=== PATIENT | female | born 1930 | race Caucasian/White ===

== ENCOUNTER 2019-08-29 13:14 | Inpatient (IN) ==
[2019-08-30] MEDS ORDERED: MOM Conc 10 ML UD.LIQ PO PRN (18:29)
[2019-08-30] MEDS ORDERED: Fluticasone Propionate Nasal 50 MCG/SPRAY BOTTLE NS PRN (18:29)
[2019-08-30] MEDS ORDERED: Bisacodyl 10 MG RECTAL SUPPOSITORY RC PRN (18:29)
[2019-08-30] MEDS ORDERED: *HR* OxyCODONE Immed Rel 5 MG TABLET PO PRN (18:29)
[2019-08-30] MEDS ORDERED: Bumetanide 1 MG TABLET PO SCH (21:00)
[2019-08-30] MEDS: Ipratropium/Albuterol Neb 3 ML IH SCH (21:23)
[2019-08-30] MEDS: Levalbuterol Neb 0.63 MG/3 ML IH PRN (21:26)
[2019-08-30] MEDS: Budesonide/Formoterol 160/4.5 1 PUFF INH IH SCH (21:26)
[2019-08-30] MEDS: carvediloL 6.25 MG TABLET PO SCH (22:12)
[2019-08-30] MEDS: Sennosides 8.6 MG TABLET PO SCH (22:12)
[2019-08-30] MEDS: *HR* Warfarin 2.5 MG TABLET PO SCH (22:13)
[2019-08-30] MEDS: ZEAX PO SCH (22:13)
[2019-08-30] MEDS: COPPER PO SCH (22:13)
[2019-08-30] MEDS: LUTEIN PO SCH (22:13)
[2019-08-30] MEDS: VITC PO SCH (22:13)
[2019-08-30] MEDS: ZINC PO SCH (22:13)
[2019-08-30] MEDS: [UNRECOGNIZED DRUG - OTHER] PO SCH (22:13)
[2019-08-31] MEDS: Ipratropium/Albuterol Neb 3 ML IH SCH ×2 (05:14→11:16)
[2019-08-31 07:22] LABS: Hematocrit 27.1 % (35.3-44.9); Hemoglobin 8.4 g/dL (11.5-15.4); Mean Corpuscular Hemoglobin 33.3 pg (28.0-33.3); Mean Corpuscular Volume 107.5 fL (83.0-100.0); Platelet Count 205 K/mcL (140-400); Red Blood Count 2.52 M/mcL (3.82-4.97); White Blood Count 11.8 K/mcL (4.3-11.1)
[2019-08-31 07:28] LABS: INR 2.5; Prothrombin Time 28.3 Seconds (9.4-12.1)
[2019-08-31 07:40] LABS: BUN/Creatinine Ratio 28 (6-26); Blood Urea Nitrogen 27 mg/dL (8-23); Calcium 8.9 mg/dL (8.6-10.3); Carbon Dioxide 37 mEq/L (23-29); Chloride 92 mEq/L (98-107); Glucose 109 mg/dL (70-105); Osmolality,Calculated 282 (280-300); Potassium 4.1 mEq/L (3.5-5.1); Sodium 133 mEq/L (136-145); eGFR For African Americans > 60 (> 60); eGFR For Non-African Americans 55 (> 60)
[2019-08-31 07:50] LABS: Eosinophils # 0.5 K/mcL (0.0-0.6); Lymphocytes # 5.7 K/mcL (0.6-4.6); Neutrophils # 5.7 K/mcL (1.6-8.9)
[2019-08-31 07:52] LABS: Basophilic Stippling 1+ (Not Present); Platelet Estimate Normal (Normal); Smudge Cells Present (Not Present)
[2019-08-31] MEDS ORDERED: Bumetanide 1 MG/4 ML VIAL IVP SCH (09:00)
[2019-08-31] MEDS: Loratadine 10 MG TABLET PO SCH (09:29)
[2019-08-31] MEDS: Aspirin 81 MG TAB.CHEW PO SCH (09:29)
[2019-08-31] MEDS: Cyanocobalamin (B-12) 1,000 MCG TABLET PO SCH (09:30)
[2019-08-31] MEDS: Folic Acid 1 MG TABLET PO SCH (09:30)
[2019-08-31] MEDS: carvediloL 6.25 MG TABLET PO SCH ×2 (09:30→20:57)
[2019-08-31] MEDS: Sennosides 8.6 MG TABLET PO SCH ×2 (09:30→20:57)
[2019-08-31] MEDS: [UNRECOGNIZED DRUG - OTHER] PO SCH ×2 (09:31→20:57)
[2019-08-31] MEDS: ZEAX PO SCH ×2 (09:31→20:57)
[2019-08-31] MEDS: ZINC PO SCH ×2 (09:31→20:57)
[2019-08-31] MEDS: COPPER PO SCH ×2 (09:31→20:57)
[2019-08-31] MEDS: VITC PO SCH ×2 (09:31→20:57)
[2019-08-31] MEDS: LUTEIN PO SCH ×2 (09:31→20:57)
[2019-08-31] MEDS: Levalbuterol Neb 0.63 MG/3 ML IH PRN ×2 (10:41→16:10)
[2019-08-31] MEDS: Budesonide/Formoterol 160/4.5 1 PUFF INH IH SCH ×2 (10:42→21:11)
[2019-08-31] MEDS: Bumetanide 1 MG/4 ML VIAL IVP SCH (17:07)
[2019-08-31] MEDS: *HR* Warfarin 5 MG TABLET PO SCH (17:07)
[2019-08-31] MEDS ORDERED: Warfarin perPT PO PRN (18:00)
[2019-08-31 22:15] LABS: Adenovirus Not Detected (Not Detect); Bordetella Pertussis Not Detected (Not Detect); Chlamydophila pneumoniae Not Detected (Not Detect); Coronavirus 229E Not Detected (Not Detect); Coronavirus HKU1 Not Detected (Not Detect); Coronavirus NL63 Not Detected (Not Detect); Coronavirus OC43 Not Detected (Not Detect); Human Metapneumovirus DETECTED (Not Detect); Human Rhinovirus/Enterovirus Not Detected (Not Detect); Influenza A Subtype 2009 H1 Not Detected (Not Detect); Influenza B Not Detected (Not Detect); Mycoplasma pneumoniae Not Detected (Not Detect); Parainfluenza Virus 1 Not Detected (Not Detect); Parainfluenza Virus 2 Not Detected (Not Detect); Parainfluenza Virus 3 Not Detected (Not Detect); Parainfluenza Virus 4 Not Detected (Not Detect); Respiratory Syncytial Virus Not Detected (Not Detect)
[2019-09-01 05:06] LABS: INR 2.6; Prothrombin Time 29.2 Seconds (9.4-12.1)
[2019-09-01] MEDS: Folic Acid 1 MG TABLET PO SCH (08:30)
[2019-09-01] MEDS: Bumetanide 1 MG/4 ML VIAL IVP SCH (08:30)
[2019-09-01] MEDS: Loratadine 10 MG TABLET PO SCH (08:30)
[2019-09-01] MEDS: carvediloL 6.25 MG TABLET PO SCH ×2 (08:30→20:35)
[2019-09-01] MEDS: Cyanocobalamin (B-12) 1,000 MCG TABLET PO SCH (08:30)
[2019-09-01] MEDS: Sennosides 8.6 MG TABLET PO SCH ×2 (08:30→20:36)
[2019-09-01] MEDS: VITC PO SCH ×2 (08:31→20:35)
[2019-09-01] MEDS: Aspirin 81 MG TAB.CHEW PO SCH (08:31)
[2019-09-01] MEDS: COPPER PO SCH ×2 (08:31→20:35)
[2019-09-01] MEDS: [UNRECOGNIZED DRUG - OTHER] PO SCH ×2 (08:31→20:35)
[2019-09-01] MEDS: ZEAX PO SCH ×2 (08:31→20:35)
[2019-09-01] MEDS: LUTEIN PO SCH ×2 (08:31→20:35)
[2019-09-01] MEDS: ZINC PO SCH ×2 (08:31→20:35)
[2019-09-01] MEDS: Levalbuterol Neb 0.63 MG/3 ML IH PRN (09:27)
[2019-09-01] MEDS: Budesonide/Formoterol 160/4.5 1 PUFF INH IH SCH ×2 (09:28→20:36)
[2019-09-01] MEDS: Ipratropium/Albuterol Neb 3 ML IH PRN (16:17)
[2019-09-01] MEDS: *HR* Warfarin 5 MG TABLET PO SCH (16:38)
[2019-09-02 06:14] LABS: INR 2.2; Prothrombin Time 25.2 Seconds (9.4-12.1)
[2019-09-02 06:26] LABS: BUN/Creatinine Ratio 29 (6-26); Blood Urea Nitrogen 30 mg/dL (8-23); Calcium 9.3 mg/dL (8.6-10.3); Carbon Dioxide 38 mEq/L (23-29); Chloride 96 mEq/L (98-107); Glucose 146 mg/dL (70-105); Osmolality,Calculated 297 (280-300); Potassium 4.5 mEq/L (3.5-5.1); Sodium 139 mEq/L (136-145); eGFR For African Americans > 60 (> 60); eGFR For Non-African Americans 50 (> 60)
[2019-09-02] MEDS: Budesonide/Formoterol 160/4.5 1 PUFF INH IH SCH ×2 (07:22→17:42)
[2019-09-02] MEDS: Ipratropium/Albuterol Neb 3 ML IH PRN ×2 (07:23→14:00)
[2019-09-02] MEDS ORDERED: carvediloL 6.25 MG TABLET ONE (08:34)
[2019-09-02] MEDS ORDERED: Ipratropium/Albuterol Neb 3 ML ONE (08:34)
[2019-09-02] MEDS ORDERED: Loratadine 10 MG TABLET ONE (08:34)
[2019-09-02] MEDS ORDERED: Folic Acid 1 MG TABLET ONE (08:34)
[2019-09-02] MEDS ORDERED: Aspirin 81 MG TAB.CHEW ONE (08:34)
[2019-09-02] MEDS ORDERED: Sennosides 8.6 MG TABLET PO ONE (08:34)
[2019-09-02] MEDS ORDERED: Cyanocobalamin (B-12) 1,000 MCG TABLET ONE (08:34)
[2019-09-02] MEDS ORDERED: *HR* OxyCODONE Immed Rel 5 MG TABLET ONE (08:34)
[2019-09-02] MEDS: Loratadine 10 MG TABLET PO SCH (16:34)
[2019-09-02] MEDS: Aspirin 81 MG TAB.CHEW PO SCH (16:34)
[2019-09-02] MEDS: Folic Acid 1 MG TABLET PO SCH (16:35)
[2019-09-02] MEDS: ZINC PO SCH ×2 (16:35→20:04)
[2019-09-02] MEDS: carvediloL 6.25 MG TABLET PO SCH ×2 (16:35→20:04)
[2019-09-02] MEDS: VITC PO SCH ×2 (16:35→20:04)
[2019-09-02] MEDS: ZEAX PO SCH ×2 (16:35→20:04)
[2019-09-02] MEDS: Sennosides 8.6 MG TABLET PO SCH ×2 (16:35→20:04)
[2019-09-02] MEDS: Cyanocobalamin (B-12) 1,000 MCG TABLET PO SCH (16:35)
[2019-09-02] MEDS: LUTEIN PO SCH ×2 (16:35→20:04)
[2019-09-02] MEDS: COPPER PO SCH ×2 (16:35→20:04)
[2019-09-02] MEDS: [UNRECOGNIZED DRUG - OTHER] PO SCH ×2 (16:35→20:04)
[2019-09-02] MEDS: *HR* Warfarin 2.5 MG TABLET PO SCH (17:25)
[2019-09-02] MEDS: Levalbuterol Neb 0.63 MG/3 ML IH PRN (17:42)
[2019-09-02] MEDS ORDERED: Bumetanide 1 MG TABLET PO SCH (21:00)
[2019-09-03] MEDS: Ipratropium/Albuterol Neb 3 ML IH PRN (03:50)
[2019-09-03 05:27] LABS: Hematocrit 30.1 % (35.3-44.9); Hemoglobin 9.4 g/dL (11.5-15.4); Mean Corpuscular HGB Conc 31.2 g/dL (31.6-35.5); Mean Corpuscular Hemoglobin 34.1 pg (28.0-33.3); Mean Corpuscular Volume 109.1 fL (83.0-100.0); Mean Platelet Volume 11.6 fL (9.4-12.4); Platelet Count 229 K/mcL (140-400); Red Blood Count 2.76 M/mcL (3.82-4.97); Red Cell Distribution Width 16.8 % (11.5-14.5); White Blood Count 19.5 K/mcL (4.3-11.1)
[2019-09-03 05:38] LABS: INR 2.4; Prothrombin Time 26.8 Seconds (9.4-12.1)
[2019-09-03 05:49] LABS: BUN/Creatinine Ratio 34 (6-26); Blood Urea Nitrogen 29 mg/dL (8-23); Carbon Dioxide 40 mEq/L (23-29); Chloride 96 mEq/L (98-107); Glucose 148 mg/dL (70-105); Osmolality,Calculated 297 (280-300); Potassium 4.5 mEq/L (3.5-5.1); Sodium 139 mEq/L (136-145); eGFR For African Americans > 60 (> 60); eGFR For Non-African Americans > 60 (> 60)
[2019-09-03] MEDS: Levalbuterol Neb 0.63 MG/3 ML IH PRN ×3 (06:31→17:33)
[2019-09-03] MEDS: Bumetanide 1 MG/4 ML VIAL IVP SCH ×2 (08:31→17:06)
[2019-09-03] MEDS: Sennosides 8.6 MG TABLET PO SCH ×2 (08:31→20:50)
[2019-09-03] MEDS: Loratadine 10 MG TABLET PO SCH (08:31)
[2019-09-03] MEDS: Cyanocobalamin (B-12) 1,000 MCG TABLET PO SCH (08:31)
[2019-09-03] MEDS: Folic Acid 1 MG TABLET PO SCH (08:31)
[2019-09-03] MEDS: levoFLOXacin 500 MG/100 ML 500 MG/100 ML BAG IVPB SCH (08:32)
[2019-09-03] MEDS: carvediloL 6.25 MG TABLET PO SCH ×2 (08:32→20:50)
[2019-09-03] MEDS: Aspirin 81 MG TAB.CHEW PO SCH (08:32)
[2019-09-03] MEDS: VITC PO SCH ×2 (08:33→20:50)
[2019-09-03] MEDS: ZINC PO SCH ×2 (08:33→20:50)
[2019-09-03] MEDS: COPPER PO SCH ×2 (08:33→20:50)
[2019-09-03] MEDS: LUTEIN PO SCH ×2 (08:33→20:50)
[2019-09-03] MEDS: ZEAX PO SCH ×2 (08:33→20:50)
[2019-09-03] MEDS: [UNRECOGNIZED DRUG - OTHER] PO SCH ×2 (08:33→20:50)
[2019-09-03] MEDS: Budesonide/Formoterol 160/4.5 1 PUFF INH IH SCH ×2 (09:32→20:50)
[2019-09-03] MEDS ORDERED: Water for inj. (sterile) 10 ML ONE (12:15)
[2019-09-03 12:18] LABS: Bilirubin,Urine Negative (Negative); Clarity,Urine Clear (Clear); Color,Urine Yellow (Yellow); Glucose,Urine (UA) Normal (Normal); Ketones,Urine Negative (Negative); Leukocyte Esterase,Urine Negative (Negative); Nitrite,Urine Negative (Negative); Protein,Urine Negative (Neg-Trace); Urobilinogen,Urine Normal (Normal)
[2019-09-03 12:24] LABS: Blood,Urine Negative (Negative)
[2019-09-03] MEDS: *HR* Warfarin 5 MG TABLET PO SCH (17:05)
[2019-09-04 05:42] LABS: Hematocrit 28.2 % (35.3-44.9); Hemoglobin 8.5 g/dL (11.5-15.4); Mean Corpuscular HGB Conc 30.1 g/dL (31.6-35.5); Mean Corpuscular Hemoglobin 33.3 pg (28.0-33.3); Mean Corpuscular Volume 110.6 fL (83.0-100.0); Mean Platelet Volume 11.5 fL (9.4-12.4); Platelet Count 200 K/mcL (140-400); Red Blood Count 2.55 M/mcL (3.82-4.97); Red Cell Distribution Width 16.5 % (11.5-14.5); White Blood Count 15.6 K/mcL (4.3-11.1)
[2019-09-04 05:44] LABS: Prothrombin Time 34.2 Seconds (9.4-12.1)
[2019-09-04 06:01] LABS: BUN/Creatinine Ratio 31 (6-26); Blood Urea Nitrogen 29 mg/dL (8-23); Carbon Dioxide 40 mEq/L (23-29); Chloride 97 mEq/L (98-107); Glucose 117 mg/dL (70-105); Magnesium 2.5 mg/dL (1.6-2.6); Osmolality,Calculated 299 (280-300); Potassium 3.9 mEq/L (3.5-5.1); Sodium 141 mEq/L (136-145); eGFR For African Americans > 60 (> 60); eGFR For Non-African Americans 56 (> 60)
[2019-09-04] MEDS: Budesonide/Formoterol 160/4.5 1 PUFF INH IH SCH ×2 (10:25→19:53)
[2019-09-04] MEDS: levoFLOXacin 500 MG/100 ML 500 MG/100 ML BAG IVPB SCH (10:26)
[2019-09-04] MEDS: Folic Acid 1 MG TABLET PO SCH (10:28)
[2019-09-04] MEDS: carvediloL 6.25 MG TABLET PO SCH ×2 (10:28→19:52)
[2019-09-04] MEDS: Aspirin 81 MG TAB.CHEW PO SCH (10:29)
[2019-09-04] MEDS: Sennosides 8.6 MG TABLET PO SCH ×2 (10:29→19:52)
[2019-09-04] MEDS: Loratadine 10 MG TABLET PO SCH (10:29)
[2019-09-04] MEDS: Ipratropium/Albuterol Neb 3 ML IH PRN ×2 (10:29→14:28)
[2019-09-04] MEDS: Cyanocobalamin (B-12) 1,000 MCG TABLET PO SCH (10:29)
[2019-09-04] MEDS: Bumetanide 1 MG/4 ML VIAL IVP SCH (11:41)
[2019-09-04] MEDS: COPPER PO SCH ×2 (11:42→19:53)
[2019-09-04] MEDS: ZINC PO SCH ×2 (11:42→19:53)
[2019-09-04] MEDS: [UNRECOGNIZED DRUG - OTHER] PO SCH ×2 (11:42→19:53)
[2019-09-04] MEDS: ZEAX PO SCH ×2 (11:42→19:53)
[2019-09-04] MEDS: VITC PO SCH ×2 (11:42→19:53)
[2019-09-04] MEDS: LUTEIN PO SCH ×2 (11:42→19:53)
[2019-09-04] MEDS: acetaZOLAMIDE 250 MG TABLET PO SCH ×2 (11:46→19:52)
[2019-09-04] MEDS: Bumetanide 1 MG TABLET PO SCH (17:44)
[2019-09-04] MEDS: Levalbuterol Neb 0.63 MG/3 ML IH PRN (19:52)
[2019-09-05] MEDS: Ipratropium/Albuterol Neb 3 ML IH PRN ×2 (03:46→21:21)
[2019-09-05 05:40] LABS: INR 3.4; Prothrombin Time 39.1 Seconds (9.4-12.1)
[2019-09-05] MEDS: Bumetanide 1 MG TABLET PO SCH ×2 (06:15→16:42)
[2019-09-05] MEDS: COPPER PO SCH ×2 (09:07→21:41)
[2019-09-05] MEDS: VITC PO SCH ×2 (09:07→21:41)
[2019-09-05] MEDS: ZEAX PO SCH ×2 (09:07→21:41)
[2019-09-05] MEDS: ZINC PO SCH ×2 (09:07→21:41)
[2019-09-05] MEDS: Sennosides 8.6 MG TABLET PO SCH ×2 (09:07→21:42)
[2019-09-05] MEDS: LUTEIN PO SCH ×2 (09:07→21:41)
[2019-09-05] MEDS: [UNRECOGNIZED DRUG - OTHER] PO SCH ×2 (09:07→21:41)
[2019-09-05] MEDS: levoFLOXacin 500 MG/100 ML 500 MG/100 ML BAG IVPB SCH (09:07)
[2019-09-05] MEDS: Folic Acid 1 MG TABLET PO SCH (09:08)
[2019-09-05] MEDS: Loratadine 10 MG TABLET PO SCH (09:08)
[2019-09-05] MEDS: carvediloL 6.25 MG TABLET PO SCH ×2 (09:08→21:42)
[2019-09-05] MEDS: Cyanocobalamin (B-12) 1,000 MCG TABLET PO SCH (09:08)
[2019-09-05] MEDS: acetaZOLAMIDE 250 MG TABLET PO SCH ×2 (09:08→21:42)
[2019-09-05] MEDS: Aspirin 81 MG TAB.CHEW PO SCH (09:08)
[2019-09-05] MEDS: Budesonide/Formoterol 160/4.5 1 PUFF INH IH SCH ×2 (11:18→21:21)
[2019-09-05] MEDS: Levalbuterol Neb 0.63 MG/3 ML IH PRN ×2 (11:19→16:44)
[2019-09-05 11:54] LABS: Basophils % 0.1 %; Eosinophils % 0.1 %; Hematocrit 30.1 % (35.3-44.9); Hemoglobin 9.1 g/dL (11.5-15.4); Immature Granulocytes % 0.7 % (0-4); Lymphocytes # 7.8 K/mcL (0.6-4.6); Lymphocytes % 52.5 %; Mean Corpuscular HGB Conc 30.2 g/dL (31.6-35.5); Mean Corpuscular Hemoglobin 33.5 pg (28.0-33.3); Mean Corpuscular Volume 110.7 fL (83.0-100.0); Mean Platelet Volume 11.5 fL (9.4-12.4); Monocytes # 0.5 K/mcL (0.0-1.3); Monocytes % 3.2 %; Neutrophils # 6.5 K/mcL (1.6-8.9); Platelet Count 204 K/mcL (140-400); Red Blood Count 2.72 M/mcL (3.82-4.97); Red Cell Distribution Width 16.2 % (11.5-14.5); Segmented Neutrophils % 43.4 %; White Blood Count 14.9 K/mcL (4.3-11.1)
[2019-09-05 12:30] LABS: BUN/Creatinine Ratio 30 (6-26); Blood Urea Nitrogen 31 mg/dL (8-23); Calcium 9.2 mg/dL (8.6-10.3); Carbon Dioxide 43 mEq/L (23-29); Chloride 95 mEq/L (98-107); Glucose 120 mg/dL (70-105); Osmolality,Calculated 298 (280-300); Potassium 3.6 mEq/L (3.5-5.1); Sodium 140 mEq/L (136-145); eGFR For African Americans > 60 (> 60); eGFR For Non-African Americans 50 (> 60)
[2019-09-05] MEDS ORDERED: *HR* Warfarin 1 MG TABLET PO ONE (18:00)
[2019-09-06] MEDS: Levalbuterol Neb 0.63 MG/3 ML IH PRN ×2 (01:50→20:47)
[2019-09-06 05:23] LABS: Basophils % 0.1 %; Eosinophils # 0.1 K/mcL (0.0-0.6); Eosinophils % 0.4 %; Hematocrit 28.4 % (35.3-44.9); Hemoglobin 8.8 g/dL (11.5-15.4); Immature Granulocytes % 0.7 % (0-4); Lymphocytes # 7.6 K/mcL (0.6-4.6); Lymphocytes % 56.8 %; Mean Corpuscular Hemoglobin 33.7 pg (28.0-33.3); Mean Corpuscular Volume 108.8 fL (83.0-100.0); Mean Platelet Volume 11.2 fL (9.4-12.4); Monocytes # 0.5 K/mcL (0.0-1.3); Monocytes % 3.9 %; Neutrophils # 5.1 K/mcL (1.6-8.9); Platelet Count 192 K/mcL (140-400); Red Blood Count 2.61 M/mcL (3.82-4.97); Red Cell Distribution Width 16.5 % (11.5-14.5); Segmented Neutrophils % 38.1 %; White Blood Count 13.4 K/mcL (4.3-11.1)
[2019-09-06 05:27] LABS: Prothrombin Time 34.6 Seconds (9.4-12.1)
[2019-09-06] MEDS: Bumetanide 1 MG TABLET PO SCH ×2 (05:30→17:34)
[2019-09-06 05:37] LABS: BUN/Creatinine Ratio 33 (6-26); Blood Urea Nitrogen 33 mg/dL (8-23); Carbon Dioxide 37 mEq/L (23-29); Chloride 96 mEq/L (98-107); Glucose 129 mg/dL (70-105); Osmolality,Calculated 295 (280-300); Potassium 3.4 mEq/L (3.5-5.1); Sodium 138 mEq/L (136-145); eGFR For African Americans > 60 (> 60); eGFR For Non-African Americans 53 (> 60)
[2019-09-06] MEDS: Ipratropium/Albuterol Neb 3 ML IH PRN (07:46)
[2019-09-06] MEDS: Budesonide/Formoterol 160/4.5 1 PUFF INH IH SCH ×2 (07:47→20:47)
[2019-09-06] MEDS: Sennosides 8.6 MG TABLET PO SCH ×2 (09:23→22:32)
[2019-09-06] MEDS: Aspirin 81 MG TAB.CHEW PO SCH (09:23)
[2019-09-06] MEDS: levoFLOXacin 500 MG/100 ML 500 MG/100 ML BAG IVPB SCH (09:23)
[2019-09-06] MEDS: acetaZOLAMIDE 250 MG TABLET PO SCH ×2 (09:24→22:33)
[2019-09-06] MEDS: VITC PO SCH ×2 (09:24→22:34)
[2019-09-06] MEDS: ZEAX PO SCH ×2 (09:24→22:34)
[2019-09-06] MEDS: Loratadine 10 MG TABLET PO SCH (09:24)
[2019-09-06] MEDS: Cyanocobalamin (B-12) 1,000 MCG TABLET PO SCH (09:24)
[2019-09-06] MEDS: COPPER PO SCH ×2 (09:24→22:34)
[2019-09-06] MEDS: LUTEIN PO SCH ×2 (09:24→22:34)
[2019-09-06] MEDS: [UNRECOGNIZED DRUG - OTHER] PO SCH ×2 (09:24→22:34)
[2019-09-06] MEDS: Folic Acid 1 MG TABLET PO SCH (09:24)
[2019-09-06] MEDS: ZINC PO SCH ×2 (09:24→22:34)
[2019-09-06] MEDS: carvediloL 6.25 MG TABLET PO SCH ×2 (09:24→22:33)
[2019-09-06] MEDS ORDERED: *HR* Warfarin 2 MG TABLET PO ONE (18:00)
[2019-09-07 04:29] LABS: INR 2.5; Prothrombin Time 28.4 Seconds (9.4-12.1)
[2019-09-07] MEDS: Bumetanide 1 MG TABLET PO SCH ×2 (05:16→18:09)
[2019-09-07 10:17] LABS: Basophils % 0.1 %; Eosinophils % 0.2 %; Hematocrit 30.1 % (35.3-44.9); Hemoglobin 9.4 g/dL (11.5-15.4); Immature Granulocytes % 0.7 % (0-4); Lymphocytes % 59.1 %; Mean Corpuscular HGB Conc 31.2 g/dL (31.6-35.5); Mean Corpuscular Hemoglobin 33.9 pg (28.0-33.3); Mean Corpuscular Volume 108.7 fL (83.0-100.0); Mean Platelet Volume 11.3 fL (9.4-12.4); Monocytes # 0.5 K/mcL (0.0-1.3); Monocytes % 3.9 %; Neutrophils # 4.9 K/mcL (1.6-8.9); Platelet Count 197 K/mcL (140-400); Red Blood Count 2.77 M/mcL (3.82-4.97); Red Cell Distribution Width 16.3 % (11.5-14.5); White Blood Count 13.6 K/mcL (4.3-11.1)
[2019-09-07] MEDS: acetaZOLAMIDE 250 MG TABLET PO SCH (10:25)
[2019-09-07] MEDS: Cyanocobalamin (B-12) 1,000 MCG TABLET PO SCH (10:26)
[2019-09-07] MEDS: Loratadine 10 MG TABLET PO SCH (10:26)
[2019-09-07] MEDS: Folic Acid 1 MG TABLET PO SCH (10:26)
[2019-09-07] MEDS: levoFLOXacin 500 MG/100 ML 500 MG/100 ML BAG IVPB SCH (10:26)
[2019-09-07] MEDS: Aspirin 81 MG TAB.CHEW PO SCH (10:26)
[2019-09-07] MEDS: Sennosides 8.6 MG TABLET PO SCH ×2 (10:26→20:03)
[2019-09-07] MEDS: carvediloL 6.25 MG TABLET PO SCH ×2 (10:26→20:04)
[2019-09-07 10:29] LABS: Platelet Estimate Normal (Normal)
[2019-09-07 10:30] LABS: Macrocytosis Present (Not Present); Reactive Lymphocytes Present (Not Present)
[2019-09-07] MEDS: VITC PO SCH ×2 (10:43→20:05)
[2019-09-07] MEDS: LUTEIN PO SCH ×2 (10:43→20:05)
[2019-09-07] MEDS: ZINC PO SCH ×2 (10:43→20:05)
[2019-09-07] MEDS: [UNRECOGNIZED DRUG - OTHER] PO SCH ×2 (10:43→20:05)
[2019-09-07] MEDS: ZEAX PO SCH ×2 (10:43→20:05)
[2019-09-07] MEDS: COPPER PO SCH ×2 (10:43→20:05)
[2019-09-07 11:10] LABS: BUN/Creatinine Ratio 31 (6-26); Blood Urea Nitrogen 29 mg/dL (8-23); Calcium 8.9 mg/dL (8.6-10.3); Carbon Dioxide 36 mEq/L (23-29); Chloride 97 mEq/L (98-107); Glucose 125 mg/dL (70-105); Osmolality,Calculated 295 (280-300); Potassium 3.3 mEq/L (3.5-5.1); Sodium 139 mEq/L (136-145); eGFR For African Americans > 60 (> 60); eGFR For Non-African Americans 57 (> 60)
[2019-09-07] MEDS: Budesonide/Formoterol 160/4.5 1 PUFF INH IH SCH ×2 (11:17→20:47)
[2019-09-07] MEDS ORDERED: *HR* Warfarin 5 MG TABLET PO ONE (18:00)
[2019-09-07] MEDS: Levalbuterol Neb 0.63 MG/3 ML IH PRN (20:47)
[2019-09-08 05:07] LABS: Hematocrit 29.7 % (35.3-44.9); Hemoglobin 9.2 g/dL (11.5-15.4); Mean Corpuscular Hemoglobin 33.6 pg (28.0-33.3); Mean Corpuscular Volume 108.4 fL (83.0-100.0); Mean Platelet Volume 11.3 fL (9.4-12.4); Monocytes # 0.6 K/mcL (0.0-1.3); Platelet Count 193 K/mcL (140-400); Red Blood Count 2.74 M/mcL (3.82-4.97); Red Cell Distribution Width 16.6 % (11.5-14.5); White Blood Count 13.7 K/mcL (4.3-11.1)
[2019-09-08] MEDS: Bumetanide 1 MG TABLET PO SCH ×2 (05:08→17:30)
[2019-09-08 05:14] LABS: INR 2.2; Prothrombin Time 25.5 Seconds (9.4-12.1)
[2019-09-08 05:18] LABS: Lymphocytes # 7.4 K/mcL (0.6-4.6); Neutrophils # 5.8 K/mcL (1.6-8.9); Platelet Estimate Normal (Normal); Reactive Lymphocytes Present (Not Present)
[2019-09-08 05:19] LABS: Macrocytosis Present (Not Present)
[2019-09-08 05:25] LABS: BUN/Creatinine Ratio 28 (6-26); Blood Urea Nitrogen 27 mg/dL (8-23); Calcium 8.7 mg/dL (8.6-10.3); Carbon Dioxide 35 mEq/L (23-29); Chloride 99 mEq/L (98-107); Glucose 124 mg/dL (70-105); Osmolality,Calculated 295 (280-300); Potassium 3.5 mEq/L (3.5-5.1); Sodium 139 mEq/L (136-145); eGFR For African Americans > 60 (> 60); eGFR For Non-African Americans 53 (> 60)
[2019-09-08] MEDS: Levalbuterol Neb 0.63 MG/3 ML IH PRN ×2 (05:25→10:14)
[2019-09-08] MEDS: carvediloL 6.25 MG TABLET PO SCH ×2 (09:42→21:13)
[2019-09-08] MEDS: Loratadine 10 MG TABLET PO SCH (09:42)
[2019-09-08] MEDS: Sennosides 8.6 MG TABLET PO SCH ×2 (09:42→21:12)
[2019-09-08] MEDS: Aspirin 81 MG TAB.CHEW PO SCH (09:42)
[2019-09-08] MEDS: Folic Acid 1 MG TABLET PO SCH (09:42)
[2019-09-08] MEDS: Cyanocobalamin (B-12) 1,000 MCG TABLET PO SCH (09:42)
[2019-09-08] MEDS: [UNRECOGNIZED DRUG - OTHER] PO SCH ×2 (09:43→21:11)
[2019-09-08] MEDS: VITC PO SCH ×2 (09:43→21:11)
[2019-09-08] MEDS: LUTEIN PO SCH ×2 (09:43→21:11)
[2019-09-08] MEDS: ZINC PO SCH ×2 (09:43→21:11)
[2019-09-08] MEDS: ZEAX PO SCH ×2 (09:43→21:11)
[2019-09-08] MEDS: COPPER PO SCH ×2 (09:43→21:11)
[2019-09-08] MEDS: levoFLOXacin 500 MG/100 ML 500 MG/100 ML BAG IVPB SCH (09:49)
[2019-09-08] MEDS: Budesonide/Formoterol 160/4.5 1 PUFF INH IH SCH ×2 (10:13→21:39)
[2019-09-08 11:25] LABS: ABG Base Excess 7 mEq/L (-2 to 3); ABG HCO3 35 mEq/L (21-27); ABG Oxygen Saturation 89 % (95-98); ABG PCO2 65 mmHg (35-45); ABG PH 7.34 pH Units (7.32-7.45); ABG PO2 61 mmHg (85-104); ABG TCO2 37 mEq/L (20-26)
[2019-09-08] MEDS: Ipratropium/Albuterol Neb 3 ML IH SCH ×3 (14:48→21:39)
[2019-09-08] MEDS ORDERED: *HR* Warfarin 5 MG TABLET PO ONE (18:00)
[2019-09-09] MEDS: Ipratropium/Albuterol Neb 3 ML IH SCH ×2 (03:52→10:31)
[2019-09-09] MEDS: Bumetanide 1 MG TABLET PO SCH (05:09)
[2019-09-09 05:48] LABS: INR 2.6; Prothrombin Time 29.6 Seconds (9.4-12.1)
[2019-09-09 06:33] LABS: ABG Base Excess 10 mEq/L (-2 to 3); ABG HCO3 36 mEq/L (21-27); ABG Oxygen Saturation 97 % (95-98); ABG PCO2 60 mmHg (35-45); ABG PH 7.39 pH Units (7.32-7.45); ABG PO2 90 mmHg (85-104); ABG TCO2 38 mEq/L (20-26)
[2019-09-09 07:19] VITALS: BP 113/64
[2019-09-09] MEDS: carvediloL 6.25 MG TABLET PO SCH (08:04)
[2019-09-09] MEDS: Sennosides 8.6 MG TABLET PO SCH (08:04)
[2019-09-09] MEDS: Loratadine 10 MG TABLET PO SCH (08:04)
[2019-09-09] MEDS: Folic Acid 1 MG TABLET PO SCH (08:04)
[2019-09-09] MEDS: ZEAX PO SCH (08:05)
[2019-09-09] MEDS: [UNRECOGNIZED DRUG - OTHER] PO SCH (08:05)
[2019-09-09] MEDS: LUTEIN PO SCH (08:05)
[2019-09-09] MEDS: VITC PO SCH (08:05)
[2019-09-09] MEDS: Cyanocobalamin (B-12) 1,000 MCG TABLET PO SCH (08:05)
[2019-09-09] MEDS: Aspirin 81 MG TAB.CHEW PO SCH (08:05)
[2019-09-09] MEDS: ZINC PO SCH (08:05)
[2019-09-09] MEDS: COPPER PO SCH (08:05)
[2019-09-09] MEDS ORDERED: levoFLOXacin 500 MG TABLET PO SCH (09:00)
[2019-09-09 10:12] LABS: Basophils % 0.2 %; Eosinophils # 0.1 K/mcL (0.0-0.6); Eosinophils % 0.7 %; Hematocrit 30.6 % (35.3-44.9); Hemoglobin 9.4 g/dL (11.5-15.4); Immature Granulocytes % 0.8 % (0-4); Lymphocytes # 7.1 K/mcL (0.6-4.6); Lymphocytes % 58.9 %; Mean Corpuscular HGB Conc 30.7 g/dL (31.6-35.5); Mean Corpuscular Hemoglobin 33.2 pg (28.0-33.3); Mean Corpuscular Volume 108.1 fL (83.0-100.0); Mean Platelet Volume 11.3 fL (9.4-12.4); Monocytes % 4.5 %; Neutrophils # 4.2 K/mcL (1.6-8.9); Platelet Count 179 K/mcL (140-400); Red Blood Count 2.83 M/mcL (3.82-4.97); Red Cell Distribution Width 16.5 % (11.5-14.5); Segmented Neutrophils % 34.9 %; White Blood Count 12.1 K/mcL (4.3-11.1)
[2019-09-09] MEDS: Budesonide/Formoterol 160/4.5 1 PUFF INH IH SCH (10:31)
[2019-09-09 11:05] LABS: Monocytes # 0.5 K/mcL (0.0-1.3)
[2019-09-09 11:14] LABS: BUN/Creatinine Ratio 29 (6-26); Blood Urea Nitrogen 30 mg/dL (8-23); Calcium 8.9 mg/dL (8.6-10.3); Carbon Dioxide 36 mEq/L (23-29); Chloride 99 mEq/L (98-107); Glucose 127 mg/dL (70-105); Osmolality,Calculated 298 (280-300); Potassium 3.2 mEq/L (3.5-5.1); Sodium 140 mEq/L (136-145); eGFR For African Americans > 60 (> 60); eGFR For Non-African Americans 50 (> 60)
[2019-09-09] MEDS ORDERED: *HR* Warfarin 2.5 MG TABLET PO ONE (18:00)
== END 2019-09-09 14:00 | disposition short-term general hospital (02) | DRG 559 ==
LOC: INPGRE 08-30 16:15
PROVIDERS: ADMIT Family Medicine; ATTEND Family Medicine

== ENCOUNTER 2019-09-11 12:23 | Inpatient (IN) ==
[2019-09-11] MEDS ORDERED: Fluticasone Propionate Nasal 50 MCG/SPRAY BOTTLE NS PRN (22:53)
[2019-09-11] MEDS ORDERED: MOM Conc 10 ML UD.LIQ PO PRN (22:53)
[2019-09-11] MEDS ORDERED: Levalbuterol Neb 0.63 MG/3 ML IH PRN (22:53)
[2019-09-11] MEDS ORDERED: Bisacodyl 10 MG RECTAL SUPPOSITORY RC PRN (22:53)
[2019-09-11] MEDS: Ipratropium/Albuterol Neb 3 ML IH SCH (23:28)
[2019-09-12] MEDS: Ipratropium/Albuterol Neb 3 ML IH SCH ×4 (04:27→21:35)
[2019-09-12 05:09] LABS: Basophils # 0.1 K/mcL (0.0-0.2); Basophils % 0.3 %; Eosinophils # 0.1 K/mcL (0.0-0.6); Eosinophils % 0.6 %; Hematocrit 31.1 % (35.3-44.9); Hemoglobin 9.8 g/dL (11.5-15.4); Immature Granulocytes % 0.8 % (0-4); Lymphocytes # 10.1 K/mcL (0.6-4.6); Lymphocytes % 64.4 %; Mean Corpuscular HGB Conc 31.5 g/dL (31.6-35.5); Mean Corpuscular Hemoglobin 34.1 pg (28.0-33.3); Mean Corpuscular Volume 108.4 fL (83.0-100.0); Mean Platelet Volume 11.9 fL (9.4-12.4); Monocytes # 0.6 K/mcL (0.0-1.3); Monocytes % 3.7 %; Neutrophils # 4.7 K/mcL (1.6-8.9); Platelet Count 165 K/mcL (140-400); Red Blood Count 2.87 M/mcL (3.82-4.97); Segmented Neutrophils % 30.2 %; White Blood Count 15.7 K/mcL (4.3-11.1)
[2019-09-12 05:13] LABS: INR 3.5; Prothrombin Time 39.7 Seconds (9.4-12.1)
[2019-09-12 05:24] LABS: BUN/Creatinine Ratio 28 (6-26); Blood Urea Nitrogen 26 mg/dL (8-23); Calcium 9.3 mg/dL (8.6-10.3); Carbon Dioxide 38 mEq/L (23-29); Chloride 98 mEq/L (98-107); Glucose 126 mg/dL (70-105); Osmolality,Calculated 300 (280-300); Potassium 3.7 mEq/L (3.5-5.1); Sodium 142 mEq/L (136-145); eGFR For African Americans > 60 (> 60); eGFR For Non-African Americans 56 (> 60)
[2019-09-12] MEDS: Sennosides 8.6 MG TABLET PO SCH ×2 (07:54→21:35)
[2019-09-12] MEDS: Bumetanide 1 MG TABLET PO SCH ×2 (07:54→21:36)
[2019-09-12] MEDS: Folic Acid 1 MG TABLET PO SCH (07:54)
[2019-09-12] MEDS: Multivit/Ca/Min/Fe/FA 1 TAB TABLET PO SCH ×2 (07:54→21:36)
[2019-09-12] MEDS: metOLazone 2.5 MG TABLET PO SCH (07:55)
[2019-09-12] MEDS: carvediloL 6.25 MG TABLET PO SCH ×2 (07:55→17:36)
[2019-09-12] MEDS: Loratadine 10 MG TABLET PO SCH (07:56)
[2019-09-12] MEDS: Aspirin 81 MG TAB.CHEW PO SCH (07:56)
[2019-09-12] MEDS: Cyanocobalamin (B-12) 1,000 MCG TABLET PO SCH (07:56)
[2019-09-12] MEDS: Budesonide/Formoterol 160/4.5 1 PUFF INH IH SCH ×2 (10:05→21:36)
[2019-09-12] MEDS ORDERED: *HR* Warfarin 2.5 MG TABLET PO ONE (18:00)
[2019-09-12] MEDS ORDERED: *HR* Warfarin 2.5 MG TABLET PO SCH (18:00)
[2019-09-12] MEDS ORDERED: Warfarin perPT PO PRN (18:00)
[2019-09-13] MEDS: Ipratropium/Albuterol Neb 3 ML IH SCH ×4 (04:03→21:09)
[2019-09-13 05:42] LABS: Hematocrit 30.4 % (35.3-44.9); Hemoglobin 9.6 g/dL (11.5-15.4); Mean Corpuscular HGB Conc 31.6 g/dL (31.6-35.5); Mean Corpuscular Hemoglobin 33.7 pg (28.0-33.3); Mean Corpuscular Volume 106.7 fL (83.0-100.0); Mean Platelet Volume 11.8 fL (9.4-12.4); Platelet Count 164 K/mcL (140-400); Red Blood Count 2.85 M/mcL (3.82-4.97); White Blood Count 13.4 K/mcL (4.3-11.1)
[2019-09-13 05:43] LABS: INR 3.4; Prothrombin Time 38.6 Seconds (9.4-12.1)
[2019-09-13 05:59] LABS: Alanine Aminotransferase 23 Units/L (7-52); Albumin 3.7 g/dL (3.5-5.7); Albumin/Globulin Ratio 1.4 (1.1-2.2); Alkaline Phosphatase 69 Units/L (34-104); Aspartate Amino Transferase 19 Units/L (13-39); BUN/Creatinine Ratio 30 (6-26); Bilirubin,Total 0.7 mg/dL (0.3-1.0); Blood Urea Nitrogen 25 mg/dL (8-23); Calcium 9.2 mg/dL (8.6-10.3); Carbon Dioxide 40 mEq/L (23-29); Chloride 96 mEq/L (98-107); Globulin 2.6 g/dL (2.4-3.5); Glucose 114 mg/dL (70-105); Magnesium 2.1 mg/dL (1.6-2.6); Osmolality,Calculated 299 (280-300); Potassium 3.4 mEq/L (3.5-5.1); Sodium 142 mEq/L (136-145); Total Protein 6.3 g/dL (6.4-8.9); eGFR For African Americans > 60 (> 60); eGFR For Non-African Americans > 60 (> 60)
[2019-09-13] MEDS: Budesonide/Formoterol 160/4.5 1 PUFF INH IH SCH ×2 (08:46→21:09)
[2019-09-13] MEDS: carvediloL 6.25 MG TABLET PO SCH ×2 (09:00→17:01)
[2019-09-13] MEDS: Multivit/Ca/Min/Fe/FA 1 TAB TABLET PO SCH ×2 (09:00→19:54)
[2019-09-13] MEDS: Bumetanide 1 MG TABLET PO SCH ×2 (09:00→19:54)
[2019-09-13] MEDS: metOLazone 2.5 MG TABLET PO SCH (09:00)
[2019-09-13] MEDS: Sennosides 8.6 MG TABLET PO SCH ×2 (09:00→19:54)
[2019-09-13] MEDS: Loratadine 10 MG TABLET PO SCH (09:00)
[2019-09-13] MEDS: Cyanocobalamin (B-12) 1,000 MCG TABLET PO SCH (09:00)
[2019-09-13] MEDS: Folic Acid 1 MG TABLET PO SCH (09:00)
[2019-09-13] MEDS: Aspirin 81 MG TAB.CHEW PO SCH (09:00)
[2019-09-13] MEDS: acetaZOLAMIDE 250 MG TABLET PO SCH ×3 (14:45→19:55)
[2019-09-13] MEDS ORDERED: *HR* Warfarin 2.5 MG TABLET PO SCH (18:00)
[2019-09-13] MEDS: Acetylcysteine 10% 2 ML INHSOL IH SCH (21:08)
[2019-09-14] MEDS: Ipratropium/Albuterol Neb 3 ML IH SCH ×4 (04:04→22:03)
[2019-09-14 05:36] LABS: INR 2.7; Prothrombin Time 30.7 Seconds (9.4-12.1)
[2019-09-14] MEDS: carvediloL 6.25 MG TABLET PO SCH ×2 (09:17→16:56)
[2019-09-14] MEDS: Sennosides 8.6 MG TABLET PO SCH ×2 (09:17→21:39)
[2019-09-14] MEDS: Multivit/Ca/Min/Fe/FA 1 TAB TABLET PO SCH ×2 (09:17→21:39)
[2019-09-14] MEDS: Aspirin 81 MG TAB.CHEW PO SCH (09:18)
[2019-09-14] MEDS: Loratadine 10 MG TABLET PO SCH (09:18)
[2019-09-14] MEDS: acetaZOLAMIDE 250 MG TABLET PO SCH ×2 (09:18→21:39)
[2019-09-14] MEDS: Bumetanide 1 MG TABLET PO SCH ×2 (09:18→21:39)
[2019-09-14] MEDS: Folic Acid 1 MG TABLET PO SCH (09:19)
[2019-09-14] MEDS: Cyanocobalamin (B-12) 1,000 MCG TABLET PO SCH (09:20)
[2019-09-14] MEDS: Budesonide/Formoterol 160/4.5 1 PUFF INH IH SCH ×2 (10:13→22:03)
[2019-09-14] MEDS: Acetylcysteine 10% 2 ML INHSOL IH SCH ×2 (10:14→22:03)
[2019-09-14] MEDS ORDERED: *HR* Warfarin 5 MG TABLET PO ONE (18:00)
[2019-09-15] MEDS: Ipratropium/Albuterol Neb 3 ML IH SCH ×4 (04:02→22:10)
[2019-09-15 05:22] LABS: Hematocrit 30.2 % (35.3-44.9); Hemoglobin 9.6 g/dL (11.5-15.4); Mean Corpuscular HGB Conc 31.8 g/dL (31.6-35.5); Mean Corpuscular Hemoglobin 33.7 pg (28.0-33.3); Mean Platelet Volume 12.1 fL (9.4-12.4); Platelet Count 181 K/mcL (140-400); Red Blood Count 2.85 M/mcL (3.82-4.97); Red Cell Distribution Width 16.9 % (11.5-14.5)
[2019-09-15 05:27] LABS: Prothrombin Time 22.5 Seconds (9.4-12.1)
[2019-09-15 05:46] LABS: BUN/Creatinine Ratio 32 (6-26); Blood Urea Nitrogen 33 mg/dL (8-23); Calcium 9.3 mg/dL (8.6-10.3); Carbon Dioxide 43 mEq/L (23-29); Chloride 92 mEq/L (98-107); Glucose 127 mg/dL (70-105); Magnesium 2.3 mg/dL (1.6-2.6); Osmolality,Calculated 299 (280-300); Sodium 140 mEq/L (136-145); eGFR For African Americans > 60 (> 60); eGFR For Non-African Americans 51 (> 60)
[2019-09-15] MEDS: Cyanocobalamin (B-12) 1,000 MCG TABLET PO SCH (09:45)
[2019-09-15] MEDS: Folic Acid 1 MG TABLET PO SCH (09:45)
[2019-09-15] MEDS: Bumetanide 1 MG TABLET PO SCH ×2 (09:45→21:10)
[2019-09-15] MEDS: Aspirin 81 MG TAB.CHEW PO SCH (09:46)
[2019-09-15] MEDS: Sennosides 8.6 MG TABLET PO SCH ×2 (09:46→21:11)
[2019-09-15] MEDS: Multivit/Ca/Min/Fe/FA 1 TAB TABLET PO SCH ×2 (09:46→21:11)
[2019-09-15] MEDS: carvediloL 6.25 MG TABLET PO SCH ×2 (09:50→17:28)
[2019-09-15] MEDS: Loratadine 10 MG TABLET PO SCH (09:50)
[2019-09-15] MEDS: acetaZOLAMIDE 250 MG TABLET PO SCH ×2 (09:50→21:11)
[2019-09-15] MEDS: Budesonide/Formoterol 160/4.5 1 PUFF INH IH SCH ×2 (11:26→22:10)
[2019-09-15] MEDS: Acetylcysteine 10% 2 ML INHSOL IH SCH ×2 (11:30→22:10)
[2019-09-15] MEDS ORDERED: *HR* Warfarin 7.5 MG TABLET PO ONE (18:00)
[2019-09-16] MEDS: Ipratropium/Albuterol Neb 3 ML IH SCH ×4 (04:55→21:27)
[2019-09-16 04:57] LABS: INR 1.9; Prothrombin Time 21.2 Seconds (9.4-12.1)
[2019-09-16] MEDS: carvediloL 6.25 MG TABLET PO SCH ×2 (08:41→17:09)
[2019-09-16] MEDS: Loratadine 10 MG TABLET PO SCH (08:41)
[2019-09-16] MEDS: Multivit/Ca/Min/Fe/FA 1 TAB TABLET PO SCH ×2 (08:41→21:18)
[2019-09-16] MEDS: Bumetanide 1 MG TABLET PO SCH ×2 (08:41→21:18)
[2019-09-16] MEDS: Aspirin 81 MG TAB.CHEW PO SCH (08:42)
[2019-09-16] MEDS: acetaZOLAMIDE 250 MG TABLET PO SCH ×2 (08:42→21:18)
[2019-09-16] MEDS: Sennosides 8.6 MG TABLET PO SCH ×2 (08:42→21:18)
[2019-09-16] MEDS: Folic Acid 1 MG TABLET PO SCH (08:42)
[2019-09-16] MEDS: Cyanocobalamin (B-12) 1,000 MCG TABLET PO SCH (08:42)
[2019-09-16] MEDS: Budesonide/Formoterol 160/4.5 1 PUFF INH IH SCH ×2 (09:20→21:27)
[2019-09-16] MEDS: Acetylcysteine 10% 2 ML INHSOL IH SCH ×2 (09:21→21:27)
[2019-09-16 11:50] LABS: Albumin 3.8 g/dL (3.5-5.7); Albumin/Globulin Ratio 1.4 (1.1-2.2); Bilirubin,Total 0.5 mg/dL (0.3-1.0); Calcium 9.5 mg/dL (8.6-10.3); Globulin 2.8 g/dL (2.4-3.5); Magnesium 2.6 mg/dL (1.6-2.6); Potassium 3.1 mEq/L (3.5-5.1); Total Protein 6.6 g/dL (6.4-8.9)
[2019-09-16] MEDS ORDERED: *HR* Warfarin 5 MG TABLET PO ONE (18:00)
[2019-09-17] MEDS: Ipratropium/Albuterol Neb 3 ML IH SCH ×4 (03:30→20:24)
[2019-09-17 04:57] LABS: Hematocrit 29.7 % (35.3-44.9); Hemoglobin 9.3 g/dL (11.5-15.4); Mean Corpuscular HGB Conc 31.3 g/dL (31.6-35.5); Mean Corpuscular Hemoglobin 33.6 pg (28.0-33.3); Mean Corpuscular Volume 107.2 fL (83.0-100.0); Mean Platelet Volume 12.4 fL (9.4-12.4); Platelet Count 165 K/mcL (140-400); Red Blood Count 2.77 M/mcL (3.82-4.97); White Blood Count 13.2 K/mcL (4.3-11.1)
[2019-09-17 05:02] LABS: Prothrombin Time 22.4 Seconds (9.4-12.1)
[2019-09-17 05:21] LABS: Calcium 9.2 mg/dL (8.6-10.3); Potassium 3.9 mEq/L (3.5-5.1)
[2019-09-17] MEDS: acetaZOLAMIDE 250 MG TABLET PO SCH ×2 (08:29→20:40)
[2019-09-17] MEDS: Loratadine 10 MG TABLET PO SCH (08:29)
[2019-09-17] MEDS: Cyanocobalamin (B-12) 1,000 MCG TABLET PO SCH (08:29)
[2019-09-17] MEDS: Sennosides 8.6 MG TABLET PO SCH ×2 (08:29→20:40)
[2019-09-17] MEDS: Multivit/Ca/Min/Fe/FA 1 TAB TABLET PO SCH ×2 (08:30→20:40)
[2019-09-17] MEDS: Aspirin 81 MG TAB.CHEW PO SCH (08:30)
[2019-09-17] MEDS: Bumetanide 1 MG TABLET PO SCH ×2 (08:30→20:39)
[2019-09-17] MEDS: carvediloL 6.25 MG TABLET PO SCH ×2 (08:30→16:51)
[2019-09-17] MEDS: Folic Acid 1 MG TABLET PO SCH (08:30)
[2019-09-17] MEDS: Budesonide/Formoterol 160/4.5 1 PUFF INH IH SCH ×2 (09:16→20:31)
[2019-09-17] MEDS: Acetylcysteine 10% 2 ML INHSOL IH SCH ×2 (09:26→20:25)
[2019-09-17] MEDS ORDERED: *HR* Warfarin 5 MG TABLET PO ONE (18:00)
[2019-09-18 05:34] LABS: Hematocrit 30.5 % (35.3-44.9); Hemoglobin 9.5 g/dL (11.5-15.4); Mean Corpuscular HGB Conc 31.1 g/dL (31.6-35.5); Mean Corpuscular Hemoglobin 33.5 pg (28.0-33.3); Mean Corpuscular Volume 107.4 fL (83.0-100.0); Mean Platelet Volume 12.2 fL (9.4-12.4); Platelet Count 171 K/mcL (140-400); Red Blood Count 2.84 M/mcL (3.82-4.97); Red Cell Distribution Width 17.2 % (11.5-14.5); White Blood Count 11.6 K/mcL (4.3-11.1)
[2019-09-18] MEDS: Ipratropium/Albuterol Neb 3 ML IH SCH ×4 (05:36→20:45)
[2019-09-18 05:39] LABS: ABG Base Excess 10 mEq/L (-2 to 3); ABG HCO3 36 mEq/L (21-27); ABG Oxygen Saturation 95 % (95-98); ABG PCO2 58 mmHg (35-45); ABG PO2 77 mmHg (85-104); ABG TCO2 38 mEq/L (20-26)
[2019-09-18 05:39] LABS: INR 1.9; Prothrombin Time 21.4 Seconds (9.4-12.1)
[2019-09-18 06:02] LABS: Calcium 9.4 mg/dL (8.6-10.3); Magnesium 2.9 mg/dL (1.6-2.6); Potassium 3.9 mEq/L (3.5-5.1)
[2019-09-18] MEDS: Loratadine 10 MG TABLET PO SCH (07:54)
[2019-09-18] MEDS: Cyanocobalamin (B-12) 1,000 MCG TABLET PO SCH (07:54)
[2019-09-18] MEDS: carvediloL 6.25 MG TABLET PO SCH ×2 (07:54→17:37)
[2019-09-18] MEDS: Folic Acid 1 MG TABLET PO SCH (07:54)
[2019-09-18] MEDS: acetaZOLAMIDE 250 MG TABLET PO SCH ×2 (07:54→21:13)
[2019-09-18] MEDS: Bumetanide 1 MG TABLET PO SCH ×2 (07:54→21:13)
[2019-09-18] MEDS: Multivit/Ca/Min/Fe/FA 1 TAB TABLET PO SCH ×2 (07:54→21:14)
[2019-09-18] MEDS: Aspirin 81 MG TAB.CHEW PO SCH (07:54)
[2019-09-18] MEDS: Sennosides 8.6 MG TABLET PO SCH ×2 (07:55→21:14)
[2019-09-18] MEDS: Budesonide/Formoterol 160/4.5 1 PUFF INH IH SCH ×2 (10:14→20:45)
[2019-09-18] MEDS: Acetylcysteine 10% 2 ML INHSOL IH SCH ×2 (10:20→20:45)
[2019-09-18] MEDS ORDERED: *HR* Warfarin 7.5 MG TABLET PO ONE (18:00)
[2019-09-19] MEDS: Ipratropium/Albuterol Neb 3 ML IH SCH ×4 (03:39→22:00)
[2019-09-19 05:31] LABS: INR 1.9; Prothrombin Time 21.7 Seconds (9.4-12.1)
[2019-09-19] MEDS: Folic Acid 1 MG TABLET PO SCH (09:01)
[2019-09-19] MEDS: Multivit/Ca/Min/Fe/FA 1 TAB TABLET PO SCH ×2 (09:03→21:03)
[2019-09-19] MEDS: Sennosides 8.6 MG TABLET PO SCH ×2 (09:03→21:03)
[2019-09-19] MEDS: Cyanocobalamin (B-12) 1,000 MCG TABLET PO SCH (09:04)
[2019-09-19] MEDS: Aspirin 81 MG TAB.CHEW PO SCH (09:04)
[2019-09-19] MEDS: Bumetanide 1 MG TABLET PO SCH ×2 (09:06→21:03)
[2019-09-19] MEDS: carvediloL 6.25 MG TABLET PO SCH ×2 (09:08→17:15)
[2019-09-19] MEDS: acetaZOLAMIDE 250 MG TABLET PO SCH ×2 (09:19→21:03)
[2019-09-19] MEDS: Loratadine 10 MG TABLET PO SCH (09:19)
[2019-09-19] MEDS: Budesonide/Formoterol 160/4.5 1 PUFF INH IH SCH ×2 (10:19→22:01)
[2019-09-19] MEDS: Acetylcysteine 10% 2 ML INHSOL IH SCH ×2 (10:22→22:01)
[2019-09-19] MEDS ORDERED: *HR* Warfarin 7.5 MG TABLET PO ONE (18:00)
[2019-09-20] MEDS: Ipratropium/Albuterol Neb 3 ML IH SCH ×4 (04:11→22:31)
[2019-09-20 05:11] LABS: INR 2.1
[2019-09-20] MEDS: Sennosides 8.6 MG TABLET PO SCH ×2 (07:42→20:56)
[2019-09-20] MEDS: Multivit/Ca/Min/Fe/FA 1 TAB TABLET PO SCH ×2 (07:43→20:58)
[2019-09-20] MEDS: Cyanocobalamin (B-12) 1,000 MCG TABLET PO SCH (07:43)
[2019-09-20] MEDS: Loratadine 10 MG TABLET PO SCH (07:44)
[2019-09-20] MEDS: Folic Acid 1 MG TABLET PO SCH (07:44)
[2019-09-20] MEDS: Aspirin 81 MG TAB.CHEW PO SCH (07:44)
[2019-09-20] MEDS: acetaZOLAMIDE 250 MG TABLET PO SCH ×2 (07:44→20:58)
[2019-09-20] MEDS: Bumetanide 1 MG TABLET PO SCH ×2 (07:47→20:56)
[2019-09-20] MEDS: carvediloL 6.25 MG TABLET PO SCH ×2 (07:48→16:48)
[2019-09-20] MEDS: Budesonide/Formoterol 160/4.5 1 PUFF INH IH SCH ×2 (16:52→22:31)
[2019-09-20] MEDS: Acetylcysteine 10% 2 ML INHSOL IH SCH ×2 (16:52→22:31)
[2019-09-20] MEDS ORDERED: *HR* Warfarin 5 MG TABLET PO ONE (18:00)
[2019-09-21] MEDS: Ipratropium/Albuterol Neb 3 ML IH SCH ×4 (04:10→22:12)
[2019-09-21 06:05] LABS: INR 2.6; Prothrombin Time 29.6 Seconds (9.4-12.1)
[2019-09-21 06:16] LABS: Calcium 9.4 mg/dL (8.6-10.3); Potassium 4.3 mEq/L (3.5-5.1)
[2019-09-21] MEDS: Acetylcysteine 10% 2 ML INHSOL IH SCH ×2 (07:40→22:12)
[2019-09-21] MEDS: Budesonide/Formoterol 160/4.5 1 PUFF INH IH SCH ×2 (07:41→22:08)
[2019-09-21] MEDS: Sennosides 8.6 MG TABLET PO SCH ×2 (09:57→21:41)
[2019-09-21] MEDS: Multivit/Ca/Min/Fe/FA 1 TAB TABLET PO SCH ×2 (09:58→21:40)
[2019-09-21] MEDS: Loratadine 10 MG TABLET PO SCH (09:58)
[2019-09-21] MEDS: Cyanocobalamin (B-12) 1,000 MCG TABLET PO SCH (09:58)
[2019-09-21] MEDS: Bumetanide 1 MG TABLET PO SCH ×2 (09:58→21:41)
[2019-09-21] MEDS: carvediloL 6.25 MG TABLET PO SCH ×2 (09:58→16:46)
[2019-09-21] MEDS: Folic Acid 1 MG TABLET PO SCH (09:58)
[2019-09-21] MEDS: Aspirin 81 MG TAB.CHEW PO SCH (09:58)
[2019-09-21] MEDS: acetaZOLAMIDE 250 MG TABLET PO SCH ×2 (09:59→21:41)
[2019-09-21] MEDS ORDERED: *HR* Warfarin 2.5 MG TABLET PO ONE (18:00)
[2019-09-22] MEDS: Ipratropium/Albuterol Neb 3 ML IH SCH ×2 (04:03→09:50)
[2019-09-22 05:07] LABS: INR 2.8
[2019-09-22 07:40] VITALS: BP 95/59
[2019-09-22] MEDS: Sennosides 8.6 MG TABLET PO SCH (08:28)
[2019-09-22] MEDS: Folic Acid 1 MG TABLET PO SCH (08:28)
[2019-09-22] MEDS: Aspirin 81 MG TAB.CHEW PO SCH (08:28)
[2019-09-22] MEDS: Bumetanide 1 MG TABLET PO SCH (08:28)
[2019-09-22] MEDS: carvediloL 6.25 MG TABLET PO SCH (08:29)
[2019-09-22] MEDS: Loratadine 10 MG TABLET PO SCH (08:29)
[2019-09-22] MEDS: Multivit/Ca/Min/Fe/FA 1 TAB TABLET PO SCH (08:30)
[2019-09-22] MEDS: Cyanocobalamin (B-12) 1,000 MCG TABLET PO SCH (08:30)
[2019-09-22] MEDS: acetaZOLAMIDE 250 MG TABLET PO SCH (08:30)
[2019-09-22] MEDS: Acetylcysteine 10% 2 ML INHSOL IH SCH (09:50)
[2019-09-22] MEDS: Budesonide/Formoterol 160/4.5 1 PUFF INH IH SCH (09:51)
[2019-09-22] MEDS ORDERED: *HR* Warfarin 2.5 MG TABLET PO ONE (18:00)
== END 2019-09-22 13:54 | disposition home health service (06) | DRG 945 ==
LOC: INPGRE 19:47
PROVIDERS: ADMIT Family Medicine; ATTEND Family Medicine